=== PATIENT | male | born 1950 | race Caucasian/White ===

== ENCOUNTER 2025-06-08 15:06 | Outpatient (CLI) | payer MEDICARE | END 2025-06-08 15:07 | disposition home or self-care (01) | LOC: SCSRAD 15:06 | PROVIDERS: ATTEND Family Medicine | DX: S69.92XA Unspecified injury of left wrist, hand and finger(s), initial encounter (principal); S89.91XA Unspecified injury of right lower leg, initial encounter; S89.92XA Unspecified injury of left lower leg, initial encounter ==

== ENCOUNTER 2025-10-08 11:10 | Outpatient (CLI) | payer MEDICARE, OTHER | END 2025-10-08 11:11 | disposition home or self-care (01) | LOC: SCSRAD 11:10 | PROVIDERS: ATTEND Family Medicine | DX: M25.532 Pain in left wrist (principal) ==